=== PATIENT | male | born 1985 | race Caucasian/White ===

== ENCOUNTER 2017-02-17 12:00 | Emergency (ER) | payer OTHER ==
[~2017-02-17] VITALS: Ht 185.4 cm; Wt 139.8 kg
[2017-02-17 12:06] VITALS: BP 148/93
== END 2017-02-17 17:03 | disposition home or self-care (01) ==
LOC: ED 12:00
DX: S02.2XXA Fracture of nasal bones, initial encounter for closed fracture (principal); W50.0XXA Accidental hit or strike by another person, initial encounter; Y99.8 Other external cause status; Y93.89 Activity, other specified; Y92.89 Other specified places as the place of occurrence of the external cause